=== PATIENT | female | born 1965 ===

== ENCOUNTER 2016-11-25 06:14 | Day surgery (SDC) | payer BC, MEDICARE ==
[2016-11-25] MEDS ORDERED: WATER FOR IRRIG STERILE IR ONE (07:30)
[2016-11-25] MEDS ORDERED: XYLOCAINE 1% 20 mL ONE (07:49)
[2016-11-25] MEDS ORDERED: DIPRIVAN 10 MG/ML IV ONE ×2 (07:49)
--- NOTE | 2016-11-25 07:49 | Anesthesia Consultation ---
Anesthesia Consult and Med Hx Date of service: 11/25/16 - Airway Anesthetic Teeth Evaluation: Edentulous (upper) ROM Head & Neck: Adequate Mental/Hyoid Distance: Adequate Mallampati Class: Class I Intubation Access Assessment: Good - Pulmonary Exam CTA: Yes - Cardiac Exam Cardiac Exam: RRR - Pre-Operative Health Status ASA Pre-Surgery Classification: ASA3 Proposed Anesthetic Plan: MAC - Pulmonary Hx Smoking: Yes COPD: Yes (Daily Inhaler use ) Hx Sleep Apnea: Yes - Cardiovascular System Hx Hypertension: Yes (Lisinopril ) - Other Systems Hx Obesity: Yes
--- NOTE | 2016-11-25 07:50 | Anesthesia Day of Surgery ---
Anesthesia Day of Surgery - Day of Surgery Patient Examined: Yes Patient H&P Reviewed: Yes Patient is NPO: Yes
--- NOTE | 2016-11-25 07:55 | Discharge Summary ---
Providers - Providers Date of discharge: 11/25/16 Attending physician: VERN VARMA Primary care physician: LEONARDO OLIVAS Hospitalization Condition: Stable Disposition: DISCHARGED TO HOME OR SELFCARE Core Measure Documentation - Palliative Care Palliative Care/ Comfort Measures: Not Applicable - Core Measures Any of the following diagnoses?: none Exam - Constitutional Vitals: Temp Pulse Resp BP Pulse Ox 97.8 F 80 127/69 13 L 11/25/16 07:28 11/25/16 07:28 11/25/16 07:28 11/25/16 07:28 General appearance: Present: no acute distress, well-nourished - Neck Neck: Present: supple, normal ROM - Respiratory Respiratory effort: normal Respiratory: bilateral: CTA - Cardiovascular Heart Sounds: Present: S1 & S2. Absent: rub, click - Neurologic Neurologic: CNII-XII intact, moves all extremities Plan Activity: no restrictions Weight Bearing Status: Full Weight Bearing Diet: low carbohydrate Follow up with: LEONARDO OLIVAS MD [Primary Care Provider] - 7 Days
[2016-11-25] MEDS ORDERED: NACL 0.9% 1000 ML 1,000 ML IV SCH (08:00)
--- NOTE | 2016-11-25 08:33 | Post Anesthesia Evaluation ---
- Post Anesthesia Evaluation Patient Participated: Yes Airway Patent: Yes Stable Respiratory Function: Yes Nausea/Vomiting: No Temp > 96.8F: Yes Pain Manageable: Yes Adequeate Hydration: Yes Anesthesia Complications: No Block Receding Appropriately: Not Applicable Patient on Ventilator: No
[2016-11-25 08:42] VITALS: BP 140/63
--- NOTE | 2016-11-25 10:43 | Operative Report ---
ATTENDING SURGEON: Davonte Strickland MD MAINFRAME PROGRAMMER ANALYST: Elkin Avila MD PREOPERATIVE DIAGNOSES: Dyspepsia and workup for bariatric surgery. POSTOPERATIVE DIAGNOSES: Hiatal hernia and antral gastritis. PROCEDURE PERFORMED: Esophagogastroduodenoscopy. INDICATION FOR PROCEDURE: The patient is a 51-year-old female who is undergoing workup for bariatric surgery. She complains of dyspepsia. After discussing risks and benefits of the procedure, she signed the consent for it. DESCRIPTION OF PROCEDURE: The patient was brought to the endoscopic suite, was placed on the stretcher in the left lateral position. MAC anesthesia was given by the anesthesia team. Timeout was called. The patient and procedure were correct. So, I inserted the endoscope into the patient's oropharynx and went down through the esophagus into the stomach and past the pylorus into the first and second portion of the duodenum. No duodenal mucosal abnormalities were visualized and the endoscope was slowly retrieved assessing the mucosa circumferentially. It was retrieved back to the antrum. Mild antral gastritis was visualized and then we proceeded to retroflex the endoscope to visualize the fundus of the stomach and the hiatus. No gross mucosal abnormalities were visualized and a small hiatal hernia was encountered. Then, the endoscope was deflected and insufflation was reduced from the stomach. The endoscope was retrieved into the esophagus, no gross esophageal mucosal abnormalities were visualized as we withdrew the endoscope slowly into the oropharynx and out of the mouth of the patient. JOB# [id number] CLAUDIA/PAT MANRIQUE
== END 2016-11-25 06:15 | disposition home or self-care (01) ==
LOC: GIO 06:14
PROVIDERS: ATTEND Specialist
DX: K29.50 Unspecified chronic gastritis without bleeding (principal); K44.9 Diaphragmatic hernia without obstruction or gangrene; J44.9 Chronic obstructive pulmonary disease, unspecified; J45.909 Unspecified asthma, uncomplicated; N39.3 Stress incontinence (female) (male); I10 Essential (primary) hypertension; M19.90 Unspecified osteoarthritis, unspecified site; G47.33 Obstructive sleep apnea (adult) (pediatric); M06.9 Rheumatoid arthritis, unspecified; E66.01 Morbid (severe) obesity due to excess calories; Z68.43 Body mass index [BMI] 50.0-59.9, adult; Z98.51 Tubal ligation status; Z87.891 Personal history of nicotine dependence; Z79.899 Other long term (current) drug therapy
CPT/HCPCS: 43235; J2704; J7030